=== PATIENT | male | born 1970 | race American Indian/Alaskan Native ===

== ENCOUNTER 2021-04-16 17:10 | Emergency (ER) | payer OTHER ==
[2021-04-16] MEDS ORDERED: IBUPROFEN 800 MG TAB PO ONE (17:37)
[2021-04-16 18:20] VITALS: BP 126/78
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
== END 2021-04-16 19:39 | disposition home or self-care (01) ==
LOC: ED 17:10
DX: S82.892A Other fracture of left lower leg, initial encounter for closed fracture (principal); S20.212A Contusion of left front wall of thorax, initial encounter; S59.901A Unspecified injury of right elbow, initial encounter; Z79.899 Other long term (current) drug therapy; V89.2XXA Person injured in unspecified motor-vehicle accident, traffic, initial encounter; Y93.89 Activity, other specified; Y92.488 Other paved roadways as the place of occurrence of the external cause; Y99.8 Other external cause status
CPT/HCPCS: 99283